=== PATIENT | female | born 1955 | race Caucasian/White ===

== ENCOUNTER 2016-11-24 10:08 | Emergency (ER) | payer BC ==
[2016-11-24 10:28] VITALS: RESP 16
--- NOTE | 2016-11-24 10:30 | EDPHY ---
H & P Time Seen by Provider: 11/24/16 10:29 HPI/ROS: Chief complaint. Rapid heart rate, dizzy HPI. 60-year-old female with history of atrial fibrillation arrived from [place] yesterday. Last night she had some dizzy spells and today she had fast heart rate and felt like she could pass out. Some chest tightness and slight shortness of breath specially with exertion. Symptoms are similar to previous atrial fibrillation. She takes Pradaxa. She has in the past taken diltiazem. She has had 3 ablations last June. She has been in normal sinus rhythm since then. ROS Constitutional. no fever/chills, no weakness Eyes. no problems with vision ENT. no sore throat, no nasal drainage Cardiovascular. Chest tightness and rapid rate Respiratory. Slight shortness of breath Abdominal. no abdominal pain, no nausea/vomiting, no diarrhea . no problems urinating MS. no calf pain/swelling, no neck/back pain, no joint pain Skin. no rash Lymph. no swollen glands Neuro. Near syncope Past Medical/Surgical History: Atrial fibrillation with the ablation is, hypertension Social History: Single nonsmoker no alcohol Smoking Status: Never smoked Physical Exam: General Appearance: Alert pleasant well-developed female moderate distress vital show a heart rate of 157 Eyes: Pupils equal and round no pallor or injection. ENT, Mouth: Mucous membranes are moist. Respiratory: There are no retractions, lungs are clear to auscultation. Cardiovascular: Irregularly irregular rate and rhythm with tachycardia Gastrointestinal: Abdomen is soft and nontender, no masses, bowel sounds normal. Neurological: Awake and alert, sensory and motor exams grossly normal. Skin: Warm and dry, no rashes. Musculoskeletal: Neck is supple nontender. Extremities symmetrical, full range of motion. Psychiatric: Patient is oriented X 3, there is no agitation. Constitutional: Initial Vital Signs Temperature (C) 36.6 C 11/24/16 10:26 Heart Rate 157 H 11/24/16 10:26 Respiratory Rate 16 11/24/16 10:26 Blood Pressure 147/91 H 11/24/16 10:26 O2 Sat (%) 94 11/24/16 10:26 O2 Delivery Mode Room Air Allergies/Adverse Reactions: No Known Allergies Allergy (Unverified 11/24/16 10:25) Home Medications: Medication Instructions Recorded DILTIAZEM HCL 30 mg PO TID #14 11/24/16 Medical Decision Making - Diagnostics EKG Interpretation: EKG interpreted by me shows atrial fib flutter. Left axis deviation. No significant ST elevation or depression. Ventricular response 159 Repeat EKG shows normal sinus rhythm with first-degree AV block left axis deviation no significant ST elevation or depression. Rate is 69 Imaging: Chest x-ray interpreted by me is nonacute Procedures: IV normal saline, monitor. Diltiazem 20 mg bolus intravenously followed by drip ED Course/Re-evaluation: Re-evaluation at 11:30 a.m. a.m.. Patient is in normal sinus rhythm with heart rate of 67 09/1940 patient continues to be in sinus rhythm and repeat EKG shows sinus rhythm. Currently her rate is 63 I consulted and discussed the case with Cardiology who recommends diltiazem 30 mg three times daily . I discussed findings and treatment plan with the patient. We discussed criteria for return and importance of follow-up and further evaluation. She expresses understanding and agreement Differential Diagnosis: Acute coronary syndrome, atrial fibrillation and other dysrhythmias. - Data Points Laboratory Results: Laboratory Results 11/24/16 11:52 11/24/16 11:52 11/24/16 11/24/16 11:52 11:52 WBC 8.60 10^3/uL 10^3/uL (3.80-9.50) RBC 4.66 10^6/uL 10^6/uL (4.18-5.33) Hgb 15.5 g/dL g/dL (12.6-16.3) Hct 45.2 % % (38.0-47.0) MCV 97.0 fL fL (81.5-99.8) MCH 33.3 pg pg (27.9-34.1) MCHC 34.3 g/dL g/dL (32.4-36.7) RDW 12.5 % % (11.5-15.2) Plt Count 252 10^3/uL 10^3/uL (150-400) MPV 9.5 fL fL (8.7-11.7) Neut % (Auto) 72.9 % % (39.3-74.2) Lymph % (Auto) 14.9 % L % (15.0-45.0) [place] % (Auto) 8.5 % % (4.5-13.0) Eos % (Auto) 2.7 % % (0.6-7.6) Baso % (Auto) 0.7 % % (0.3-1.7) Nucleat RBC Rel Count 0.0 % % (0.0-0.2) Absolute Neuts (auto) 6.27 10^3/uL 10^3/uL (1.70-6.50) Absolute Lymphs (auto) 1.28 10^3/uL 10^3/uL (1.00-3.00) Absolute Monos (auto) 0.73 10^3/uL 10^3/uL (0.30-0.80) Absolute Eos (auto) 0.23 10^3/uL 10^3/uL (0.03-0.40) Absolute Basos (auto) 0.06 10^3/uL 10^3/uL (0.02-0.10) Absolute Nucleated RBC 0.00 10^3/uL 10^3/uL (0-0.01) Immature Gran % 0.3 % % (0.0-1.1) Immature Gran # 0.03 10^3/uL 10^3/uL (0.00-0.10) Sodium 143 mEq/L mEq/L (134-144) Potassium 3.7 mEq/L mEq/L (3.5-5.2) Chloride 103 mEq/L mEq/L (97-110) Carbon Dioxide 26 mEq/l mEq/l (22-31) Anion Gap 14 mEq/L mEq/L (8-16) BUN 16 mg/dL mg/dL (7-23) Creatinine 0.7 mg/dL mg/dL (0.6-1.0) Estimated GFR > 60 Glucose 121 mg/dL H mg/dL (70-100) Calcium 9.0 mg/dL mg/dL (8.5-10.4) Troponin I 0.015 ng/mL ng/mL (0-0.034) Medications Given: Discontinued Medications Diltiazem HCl (Cardizem 25 Mg/5 Ml Vial) 20 mg IVP EDNOW ONE Stop: 11/24/16 10:39 Last Admin: 11/24/16 11:00 Dose: 20 mg Diltiazem HCl 125 mg/ Dextrose 125 mls @ 0 mls/hr IV EDNOW ONE; As Directed PRN Reason: Protocol Stop: 11/24/16 10:39 Last Admin: 11/24/16 11:10 Dose: 125 mls Sodium Chloride (Ns) 1,000 mls @ 0 mls/hr IV ONCE ONE PRN Reason: Wide Open Stop: 11/24/16 10:39 Last Admin: 11/24/16 11:07 Dose: 1,000 mls Departure - Departure Disposition: Home, Routine, Self-Care Clinical Impression: Atrial fibrillation Qualifiers: Atrial fibrillation type: paroxysmal Qualified Code(s): I48.0 - Paroxysmal atrial fibrillation Condition: Good Instructions: Atrial Fibrillation (ED) Additional Instructions: Continue your Pradaxa. Diltiazem 3 times daily. Follow up with your supervisor cooler service on return home to [place]. Return while in a [place] for worsening symptoms. Prescriptions: DILTIAZEM HCL 30 mg PO TID #14
--- NOTE | 2016-11-24 10:32 | CPEKG ---
Heart Rate: 159 RR Interval: 377 QRSD Interval: 80 QT Interval: 312 QTC Interval: 508 P [place]: 0 QRS [place]: -14 T Wave [place]: 122 EKG Severity - ABNORMAL ECG - EKG Impression: atrial fibrillation EKG Impression: PROBABLE LVH WITH SECONDARY REPOL ABNRM Electronically Signed By: Mukesh Menchaca 24-Nov-2016 13:45:13
[2016-11-24] MEDS ORDERED: NS 1,000 ML IV ONE (10:38)
[2016-11-24] MEDS ORDERED: DILTIAZEM 25 MG/5 ML VIAL IVP ONE (10:38)
[2016-11-24] MEDS ORDERED: DILTIAZEM 125 MG in D5W 125 ML IV ONE (10:38)
[2016-11-24 11:10] VITALS: TEMP 98.4
[2016-11-24 12:03] LABS: % IMMATURE GRANULYOCYTES 0.3 % (0.0-1.1); ABSOLUTE IMMATURE GRANULOCYTES 0.03 10^3/uL (0.00-0.10); ADD DIFF? NO; ADD MORPH? NO; ADD SCAN? NO; ATYPICAL LYMPHOCYTE FLAG 10 (0-99); FRAGMENT RBC FLAG 10 (0-99); HEMATOCRIT 45.2 % (38.0-47.0); HEMOGLOBIN 15.5 g/dL (12.6-16.3); LEFT SHIFT FLG 0 (0-99); LIPEMIA HEMOLYSIS FLAG 90 (0-99); MEAN CELL HEMOGLOBIN 33.3 pg (27.9-34.1); MEAN CELL HEMOGLOBIN CONCENTR. 34.3 g/dL (32.4-36.7); MEAN PLATELET VOLUME 9.5 fL (8.7-11.7); PLATELET CLUMPS FLAG 0 (0-99); PLATELET COUNT 252 10^3/uL (150-400); RED BLOOD CELL COUNT 4.66 10^6/uL (4.18-5.33); RED CELL DISTRIBUTION WIDTH 12.5 % (11.5-15.2)
[2016-11-24 12:22] LABS: ANION GAP 14 mEq/L (8-16); CARBON DIOXIDE 26 mEq/l (22-31); CHLORIDE 103 mEq/L (97-110); CREATININE 0.7 mg/dL (0.6-1.0); GLOMERULAR FILTRATION RATE > 60; GLUCOSE 121 mg/dL (70-100); POTASSIUM 3.7 mEq/L (3.5-5.2); SODIUM 143 mEq/L (134-144)
[2016-11-24 12:34] LABS: TROPONIN I 0.015 ng/mL (0-0.034)
[2016-11-24 13:04] VITALS: BP 128/79; PULSE 68; O2SAT 94
== END 2016-11-24 13:00 | disposition home or self-care (01) ==
DX: I48.0 Paroxysmal atrial fibrillation (principal); I10 Essential (primary) hypertension
CPT/HCPCS: 96365; 96366

== ENCOUNTER 2016-11-26 07:26 | Observation (INO) | payer BC ==
--- NOTE | 2016-11-26 07:38 | EDPHY ---
H & P Time Seen by Provider: 11/26/16 07:36 HPI/ROS: Chief complaint. Chest pain HPI. I was having difficulty completing this chart. I canceled this 1 and completed a different chart on this patient. ROS Constitutional. [no fever/chills, no weakness] Eyes. [no problems with vision] ENT. [no sore throat, no nasal drainage] Cardiovascular. [no chest pain] Respiratory. [no shortness of breath, no cough] Abdominal. [no abdominal pain, no nausea/vomiting, no diarrhea] . [no problems urinating] MS. [no calf pain/swelling, no neck/back pain, no joint pain] Skin. [no rash] Lymph. [no swollen glands] Neuro. [no headache, no dizziness, no difficulty walking or with speech] Past Medical/Surgical History: Atrial fibrillation with ablation. Hypertension Social History: Single, nonsmoker, no alcohol. Visiting from [place] Smoking Status: Never smoked Constitutional: Initial Vital Signs Temperature (C) 36.7 C 11/26/16 07:36 Heart Rate 162 H 11/26/16 07:36 Respiratory Rate 24 H 11/26/16 07:36 Blood Pressure 107/78 11/26/16 07:36 O2 Sat (%) 97 11/26/16 07:36 O2 Delivery Mode Room Air O2 (L/minute) 2 Allergies/Adverse Reactions: No Known Allergies Allergy (Unverified 11/24/16 10:25) Home Medications: Medication Instructions Recorded Cholecalciferol Vit D3 [Vitamin D3 2,000 units PO DAILY 11/26/16 2000 units tab (OTC)] Dabigatran Etexilate Mesyl 150 mg PO BID 11/26/16 [Pradaxa 150 MG (*)] Diltiazem HCl 30 mg PO TID 11/26/16 Ferrous Sulfate [Ferrous Sulf 325 325 mg PO DAILY 11/26/16 MG (*)] Fish Oil/Dha/Epa [Fish Oil 1,200 1 each PO DAILY 11/26/16 mg Fish Oil] Furosemide [Lasix 20 MG (*)] 20 mg PO Q2D 11/26/16 Nebivolol HCl [Bystolic] 10 mg PO DAILY 11/26/16 SIMVASTATIN 10 mg PO HS 11/26/16 Terbinafine HCl [LamISIL 250 MG 250 mg PO DAILY 11/26/16 (*)] metFORMIN HCL [Glucophage 500 mg 500 mg PO DAILY 11/26/16 (*)] Medical Decision Making - Diagnostics EKG Interpretation: EKG interpreted by me shows normal sinus rhythm with first-degree AV block. Left axis deviation. QRS is normal. Lateral T-wave inversion - Data Points Laboratory Results: Laboratory Results 11/26/16 07:50 11/26/16 07:50 11/26/16 11/26/16 11/26/16 08:50 07:50 07:50 WBC RBC Hgb Hct MCV MCH MCHC RDW Plt Count MPV Neut % (Auto) Lymph % (Auto) [place] % (Auto) Eos % (Auto) Baso % (Auto) Nucleat RBC Rel Count Absolute Neuts (auto) Absolute Lymphs (auto) Absolute Monos (auto) Absolute Eos (auto) Absolute Basos (auto) Absolute Nucleated RBC Immature Gran % Immature Gran # PT 16.0 SEC H SEC (12.0-15.0) INR 1.28 H (0.83-1.16) APTT 27.4 SEC SEC (23.0-38.0) D-Dimer 0.57 ug/mLFEU H ug/mLFEU (0.00-0.50) Sodium 144 mEq/L mEq/L (134-144) Potassium 3.7 mEq/L mEq/L (3.5-5.2) Chloride 107 mEq/L mEq/L (97-110) Carbon Dioxide 25 mEq/l mEq/l (22-31) Anion Gap 12 mEq/L mEq/L (8-16) BUN 11 mg/dL mg/dL (7-23) Creatinine 0.6 mg/dL mg/dL (0.6-1.0) Estimated GFR > 60 Glucose 152 mg/dL H mg/dL (70-100) Calcium 9.0 mg/dL mg/dL (8.5-10.4) Magnesium 2.1 mg/dL mg/dL (1.6-2.3) Troponin I 0.018 ng/mL ng/mL (0-0.034) NT-Pro-B Natriuret Pep 1650 pg/mL H pg/mL (0-125) 11/26/16 07:50 WBC 9.14 10^3/uL 10^3/uL (3.80-9.50) RBC 4.45 10^6/uL 10^6/uL (4.18-5.33) Hgb 14.5 g/dL g/dL (12.6-16.3) Hct 43.0 % % (38.0-47.0) MCV 96.6 fL fL (81.5-99.8) MCH 32.6 pg pg (27.9-34.1) MCHC 33.7 g/dL g/dL (32.4-36.7) RDW 12.5 % % (11.5-15.2) Plt Count 198 10^3/uL D 10^3/uL (150-400) MPV 9.6 fL fL (8.7-11.7) Neut % (Auto) 66.9 % % (39.3-74.2) Lymph % (Auto) 20.5 % % (15.0-45.0) [place] % (Auto) 7.0 % % (4.5-13.0) Eos % (Auto) 4.3 % % (0.6-7.6) Baso % (Auto) 0.8 % % (0.3-1.7) Nucleat RBC Rel Count 0.0 % % (0.0-0.2) Absolute Neuts (auto) 6.12 10^3/uL 10^3/uL (1.70-6.50) Absolute Lymphs (auto) 1.87 10^3/uL 10^3/uL (1.00-3.00) Absolute Monos (auto) 0.64 10^3/uL 10^3/uL (0.30-0.80) Absolute Eos (auto) 0.39 10^3/uL 10^3/uL (0.03-0.40) Absolute Basos (auto) 0.07 10^3/uL 10^3/uL (0.02-0.10) Absolute Nucleated RBC 0.00 10^3/uL 10^3/uL (0-0.01) Immature Gran % 0.5 % % (0.0-1.1) Immature Gran # 0.05 10^3/uL 10^3/uL (0.00-0.10) PT INR APTT D-Dimer Sodium Potassium Chloride Carbon Dioxide Anion Gap BUN Creatinine Estimated GFR Glucose Calcium Magnesium Troponin I NT-Pro-B Natriuret Pep Medications Given: Discontinued Medications Aspirin (Aspirin) 324 mg PO EDNOW ONE Stop: 11/26/16 08:00 Last Admin: 11/26/16 08:10 Dose: 324 mg Furosemide (Lasix Injection) 20 mg IVP ONCE ONE Stop: 11/26/16 11:44 Last Admin: 11/26/16 13:16 Dose: 20 mg Sodium Chloride (Ns) 1,000 mls @ 0 mls/hr IV ONCE ONE PRN Reason: Wide Open Stop: 11/26/16 07:41 Last Admin: 11/26/16 07:55 Dose: 1,000 mls Lorazepam (Ativan) 1 mg PO EDNOW ONE Stop: 11/26/16 08:00 Last Admin: 11/26/16 08:10 Dose: 1 mg Departure - Departure Disposition: [facility] Acute Clinical Impression: Chest pain, Congestive heart failure Condition: Fair
[2016-11-26] MEDS ORDERED: NS 1,000 ML IV ONE (07:40)
--- NOTE | 2016-11-26 07:42 | CPEKG ---
Heart Rate: 76 RR Interval: 789 P-R Interval: 232 QRSD Interval: 84 QT Interval: 408 QTC Interval: 459 P [place]: 57 QRS [place]: -3 T Wave [place]: 112 EKG Severity - ABNORMAL ECG - EKG Impression: SINUS RHYTHM EKG Impression: FIRST DEGREE AV BLOCK EKG Impression: ABNORMAL T, CONSIDER ISCHEMIA, LATERAL LEADS Electronically Signed By: Mukesh Menchaca 26-Nov-2016 07:58:12
[2016-11-26] MEDS ORDERED: ASPIRIN 81 MG CHEWABLE TAB PO ONE (07:59)
[2016-11-26] MEDS ORDERED: LORazepam 1 MG TAB PO ONE (07:59)
[2016-11-26 08:10] LABS: % IMMATURE GRANULYOCYTES 0.5 % (0.0-1.1); ABSOLUTE IMMATURE GRANULOCYTES 0.05 10^3/uL (0.00-0.10); ADD DIFF? NO; ADD MORPH? NO; ADD SCAN? NO; ATYPICAL LYMPHOCYTE FLAG 0 (0-99); FRAGMENT RBC FLAG 0 (0-99); HEMOGLOBIN 14.5 g/dL (12.6-16.3); LEFT SHIFT FLG 0 (0-99); LIPEMIA HEMOLYSIS FLAG 80 (0-99); MEAN CELL HEMOGLOBIN 32.6 pg (27.9-34.1); MEAN CELL HEMOGLOBIN CONCENTR. 33.7 g/dL (32.4-36.7); MEAN CELL VOLUME 96.6 fL (81.5-99.8); MEAN PLATELET VOLUME 9.6 fL (8.7-11.7); PLATELET CLUMPS FLAG 10 (0-99); PLATELET COUNT 198 10^3/uL (150-400); RED BLOOD CELL COUNT 4.45 10^6/uL (4.18-5.33); RED CELL DISTRIBUTION WIDTH 12.5 % (11.5-15.2)
[2016-11-26 08:11] LABS: ANION GAP 12 mEq/L (8-16); CARBON DIOXIDE 25 mEq/l (22-31); CHLORIDE 107 mEq/L (97-110); CREATININE 0.6 mg/dL (0.6-1.0); GLOMERULAR FILTRATION RATE > 60; GLUCOSE 152 mg/dL (70-100); POTASSIUM 3.7 mEq/L (3.5-5.2); SODIUM 144 mEq/L (134-144)
[2016-11-26 08:14] LABS: INR 1.28 (0.83-1.16)
[2016-11-26 08:15] LABS: APTT 27.4 SEC (23.0-38.0)
[2016-11-26 08:23] LABS: TROPONIN I 0.018 ng/mL (0-0.034)
--- NOTE | 2016-11-26 08:34 | EDPHY ---
H & P Time Seen by Provider: 11/26/16 07:36 HPI/ROS: Chief complaint. CHIEF COMPLAINT: Chest pain. HPI. Patient is a 60-year-old female here with chest discomfort and sense of fast heartbeat that began about 4 o'clock this morning. She was seen in our emergency department 2 days ago for atrial fibrillation and was treated with diltiazem intravenously and converted. I saw the patient and consulted with Cardiology and the patient was discharged on oral diltiazem. Yesterday she felt well. Today she has chest pressure without radiation. She had shortness of breath and diaphoresis. Symptoms were worse with exertion. No unusual leg pain or swelling. She is visiting from [place] for a wedding. She had an ablation in June for her atrial fibrillation and had not had atrial fibrillation until she came to [place] a few days ago. Not ill and no fever. This morning she felt that her heart was beating fast around 150. She did take a diltiazem ROS Constitutional. Weakness Eyes. no problems with vision ENT. no sore throat, no nasal drainage Cardiovascular. Chest pressure Respiratory. Shortness of breath Abdominal. no abdominal pain, no nausea/vomiting, no diarrhea . no problems urinating MS. no calf pain/swelling, no neck/back pain, no joint pain Skin. Diaphoresis Lymph. no swollen glands Neuro. no headache, no dizziness, no difficulty walking or with speech Past Medical/Surgical History: Past medical history is significant for hypertension and atrial fibrillation Social History: Single, nonsmoker, no alcohol. Visiting from [place] Smoking Status: Never smoked Physical Exam: General Appearance: Alert pleasant well-developed female moderate distress vital signs are stable Eyes: Pupils equal and round no pallor or injection. ENT, Mouth: Mucous membranes are moist. Respiratory: There are no retractions, lungs are clear to auscultation. Cardiovascular: Regular rate and rhythm. Gastrointestinal: Abdomen is soft and nontender, no masses, bowel sounds normal. Neurological: Awake and alert, sensory and motor exams grossly normal. Skin: Warm and dry, no rashes. Musculoskeletal: Neck is supple nontender. Extremities symmetrical, full range of motion. Psychiatric: Patient is oriented X 3, there is no agitation. Constitutional: Initial Vital Signs Temperature (C) 36.7 C 11/26/16 07:36 Heart Rate 162 H 11/26/16 07:36 Respiratory Rate 24 H 11/26/16 07:36 Blood Pressure 107/78 11/26/16 07:36 O2 Sat (%) 97 11/26/16 07:36 O2 Delivery Mode Room Air O2 (L/minute) 2 Allergies/Adverse Reactions: No Known Allergies Allergy (Unverified 11/24/16 10:25) Home Medications: Medication Instructions Recorded DILTIAZEM HCL 30 mg PO TID #14 11/24/16 Diltiazem [Cardizem 60 MG (*)] 30 mg PO TID #14 tab 11/24/16 Medical Decision Making - Diagnostics EKG Interpretation: EKG interpreted by me shows normal sinus rhythm with first-degree AV block. QRS is normal there is no significant ST elevation. There is T-wave inversion in leads 1 and aVL. The rate is 76. The changes in the lateral leads were present on EKG 2 days ago Imaging: One-view chest x-ray interpreted by me shows no evidence for pneumonia. It is consistent with mild CHF CT angiogram patient's chest shows bilateral pleural effusions, CHF, incidental thyroid nodule. Procedures: IV normal saline, monitor. Patient is given aspirin and Ativan as she is quite anxious. ED Course/Re-evaluation: Re-evaluation at 8:30 a.m. patient is feeling better after the Ativan. Her discomfort is less. She remains in sinus rhythm The patient's D-dimer is elevated. She and I discussed further evaluation with chest CT. She consents, understands, and is in agreement Re-evaluation at 9:25 a.m.. Patient is feeling better. She and I discussed EKG , imaging study results, treatment plan including recommendation for admission. She expresses understanding and agreement I consulted and discussed the case with Dr. Wu, hospitalist, who agrees to the admission Differential Diagnosis: I considered acute coronary syndrome, arrhythmia including atrial fibrillation, pulmonary embolus, congestive heart failure, COPD. Patient has evidence for CHF. I suspect that there is cardiac ischemia as well. She was seen 2 days ago for atrial fibrillation but today is in normal sinus rhythm. She does have lateral ischemic type changes on her EKG - Data Points Laboratory Results: Laboratory Results 11/26/16 07:50 11/26/16 07:50 11/26/16 11/26/16 11/26/16 07:50 07:50 07:50 WBC 9.14 10^3/uL 10^3/uL (3.80-9.50) RBC 4.45 10^6/uL 10^6/uL (4.18-5.33) Hgb 14.5 g/dL g/dL (12.6-16.3) Hct 43.0 % % (38.0-47.0) MCV 96.6 fL fL (81.5-99.8) MCH 32.6 pg pg (27.9-34.1) MCHC 33.7 g/dL g/dL (32.4-36.7) RDW 12.5 % % (11.5-15.2) Plt Count 198 10^3/uL D 10^3/uL (150-400) MPV 9.6 fL fL (8.7-11.7) Neut % (Auto) 66.9 % % (39.3-74.2) Lymph % (Auto) 20.5 % % (15.0-45.0) [place] % (Auto) 7.0 % % (4.5-13.0) Eos % (Auto) 4.3 % % (0.6-7.6) Baso % (Auto) 0.8 % % (0.3-1.7) Nucleat RBC Rel Count 0.0 % % (0.0-0.2) Absolute Neuts (auto) 6.12 10^3/uL 10^3/uL (1.70-6.50) Absolute Lymphs (auto) 1.87 10^3/uL 10^3/uL (1.00-3.00) Absolute Monos (auto) 0.64 10^3/uL 10^3/uL (0.30-0.80) Absolute Eos (auto) 0.39 10^3/uL 10^3/uL (0.03-0.40) Absolute Basos (auto) 0.07 10^3/uL 10^3/uL (0.02-0.10) Absolute Nucleated RBC 0.00 10^3/uL 10^3/uL (0-0.01) Immature Gran % 0.5 % % (0.0-1.1) Immature Gran # 0.05 10^3/uL 10^3/uL (0.00-0.10) PT 16.0 SEC H SEC (12.0-15.0) INR 1.28 H (0.83-1.16) APTT 27.4 SEC SEC (23.0-38.0) D-Dimer 0.57 ug/mLFEU H ug/mLFEU (0.00-0.50) Sodium 144 mEq/L mEq/L (134-144) Potassium 3.7 mEq/L mEq/L (3.5-5.2) Chloride 107 mEq/L mEq/L (97-110) Carbon Dioxide 25 mEq/l mEq/l (22-31) Anion Gap 12 mEq/L mEq/L (8-16) BUN 11 mg/dL mg/dL (7-23) Creatinine 0.6 mg/dL mg/dL (0.6-1.0) Estimated GFR > 60 Glucose 152 mg/dL H mg/dL (70-100) Calcium 9.0 mg/dL mg/dL (8.5-10.4) Troponin I 0.018 ng/mL ng/mL (0-0.034) NT-Pro-B Natriuret Pep 1650 pg/mL H pg/mL (0-125) Medications Given: Discontinued Medications Aspirin (Aspirin) 324 mg PO EDNOW ONE Stop: 11/26/16 08:00 Last Admin: 11/26/16 08:10 Dose: 324 mg Sodium Chloride (Ns) 1,000 mls @ 0 mls/hr IV ONCE ONE PRN Reason: Wide Open Stop: 11/26/16 07:41 Last Admin: 11/26/16 07:55 Dose: 1,000 mls Lorazepam (Ativan) 1 mg PO EDNOW ONE Stop: 11/26/16 08:00 Last Admin: 11/26/16 08:10 Dose: 1 mg Departure - Departure Disposition: [facility]patient Acute Clinical Impression: Chest pain Qualifiers: Chest pain type: unspecified Qualified Code(s): R07.9 - Chest pain, unspecified Congestive heart failure Qualifiers: Congestive heart failure type: systolic Congestive heart failure chronicity: unspecified congestive heart failure chronicity Qualified Code(s): I50.20 - Unspecified systolic (congestive) heart failure Condition: Fair Referrals: Unknown,Unknown [Unknown] - As per Instructions
[2016-11-26] MEDS ORDERED: IOPAMIDOL (ISOVUE 370) 100 ML BTL IV ONE (08:43)
[2016-11-26] MEDS ORDERED: ONDANSETRON 4 MG/2 ML VIAL IVP PRN (11:41)
[2016-11-26] MEDS ORDERED: TEMAZEPAM 15 MG CAP PO PRN (11:41)
[2016-11-26] MEDS ORDERED: ACETAMINOPHEN 325 MG TAB PO PRN (11:41)
[2016-11-26] MEDS ORDERED: ONDANSETRON DISINTEGRATING 4 MG TAB PO PRN (11:41)
[2016-11-26] MEDS ORDERED: FUROSEMIDE 20 MG/2 ML VIAL IVP ONE (11:43)
[2016-11-26] MEDS ORDERED: NON-FORMULARY NEW DRUG (Nebivolol Hcl [Bystolic] 10 MG) PO SCH (11:45)
[2016-11-26] MEDS ORDERED: DILTIAZEM 30 MG TAB PO SCH (12:00)
--- NOTE | 2016-11-26 12:17 | PDGENHP ---
History and Physical - Chief Complaint chest pain, heart palpitations - History of Present Illness 60 yo female with h/o A fib, s/p ablation in 06/2016 presents to ED with chest pain, SOB and heart palpitations. She is visiting from [place], [place] for a wedding. Upon arrival on , she had a brief, 15 second episode of lightheadedness. The following day, she again had palpitations and chest discomfort and came to the ED where she was found to be in rapid A fib. She received a dose of Diltiazem and spontaneously converted to NSR. She was discharged on oral diltiazem 30 mg TID. She took a dose at 6 pm last night and this morning, ~12 hr later, she developed palpitations, dizziness, CP and SOB. She took her 30 mg oral Diltiazem and returned to the ED where her initial HR was 162. By the time an EKG was performed, she was back in NSR and her symptoms were improved. She does endorse orthopnea, but denies LE edema or PND. Given her recurrent symptoms, she is admitted to the hospital for further evaluation. History Information - Allergies/Home Medication List Allergies/Adverse Reactions: No Known Allergies Allergy (Unverified 11/24/16 10:25) Home Medications: Cholecalciferol Vit D3 [Vitamin D3 2000 units tab (OTC)] 2,000 units PO DAILY [Last Taken 11/25/16 08:00] Dabigatran Etexilate Mesyl [Pradaxa 150 MG (*)] 150 mg PO BID 11/26/16 [Last Taken 11/25/16 22:00] Diltiazem HCl 30 mg PO TID 11/26/16 [Last Taken 11/26/16 07:00] Ferrous Sulfate [Ferrous Sulf 325 MG (*)] 325 mg PO DAILY 11/26/16 [Last Taken 11/25/16 08:00] Fish Oil/Dha/Epa [Fish Oil 1,200 mg Fish Oil] 1 each PO DAILY 11/26/16 [Last Taken 11/25/16 08:00] Furosemide [Lasix 20 MG (*)] 20 mg PO Q2D 11/26/16 [Last Taken 11/22/16] Nebivolol HCl [Bystolic] 10 mg PO DAILY 11/26/16 [Last Taken 11/25/16 08:00] SIMVASTATIN 10 mg PO HS 11/26/16 [Last Taken 11/25/16 22:00] Terbinafine HCl [LamISIL 250 MG (*)] 250 mg PO DAILY 11/26/16 [Last Taken ] metFORMIN HCL [Glucophage 500 mg (*)] 500 mg PO DAILY 11/26/16 [Last Taken 11/25 08:00] I have personally reviewed and updated: family history, medical history, social history, surgical history - Past Medical History atrial fibrillation, hypertension, hyperlipidemia Additional medical history: pre-diabetes - Surgical History Additional surgical history: oopherectomy, AV edith ablation - Family History Additional family history: mom of heart problems, dad is alive and healthy - Social History Smoking Status: Never smoked Alcohol Use: Other (1-2 glasses of wine per day) Drug Use: None Review of Systems ROS: 10pt was reviewed & negative except for what was stated in HPI & below Physical Exam Temp Pulse Resp BP Pulse Ox 36.5 C 112 H 11 L 129/104 H 93 11/26/16 11:01 11/26/16 11:01 11/26/16 11:01 11/26/16 11:01 11/26/16 11:01 Constitutional: no apparent distress Eyes: PERRL Ears, Nose, Mouth, Throat: moist mucous membranes Cardiovascular: irregularly irregular Respiratory: no respiratory distress, clear to auscultation Gastrointestinal: normoactive bowel sounds, soft, non-tender abdomen Skin: warm Musculoskeletal: full muscle strength Neurologic: AAOx3 Psychiatric: interacting appropriately Lab Data & Imaging Review 11/26/16 07:50 11/26/16 07:50 WBC 9.14 10^3/uL (3.80-9.50) 11/26/16 07:50 RBC 4.45 10^6/uL (4.18-5.33) 11/26/16 07:50 Hgb 14.5 g/dL (12.6-16.3) 11/26/16 07:50 Hct 43.0 % (38.0-47.0) 11/26/16 07:50 MCV 96.6 fL (81.5-99.8) 11/26/16 07:50 MCH 32.6 pg (27.9-34.1) 11/26/16 07:50 MCHC 33.7 g/dL (32.4-36.7) 11/26/16 07:50 RDW 12.5 % (11.5-15.2) 11/26/16 07:50 Plt Count 198 10^3/uL (150-400) D 11/26/16 07:50 MPV 9.6 fL (8.7-11.7) 11/26/16 07:50 Neut % (Auto) 66.9 % (39.3-74.2) 11/26/16 07:50 Lymph % (Auto) 20.5 % (15.0-45.0) 11/26/16 07:50 Marin % (Auto) 7.0 % (4.5-13.0) 11/26/16 07:50 Eos % (Auto) 4.3 % (0.6-7.6) 11/26/16 07:50 Baso % (Auto) 0.8 % (0.3-1.7) 11/26/16 07:50 Nucleat RBC Rel Count 0.0 % (0.0-0.2) 11/26/16 07:50 Absolute Neuts (auto) 6.12 10^3/uL (1.70-6.50) 11/26/16 07:50 Absolute Lymphs (auto) 1.87 10^3/uL (1.00-3.00) 11/26/16 07:50 Absolute Monos (auto) 0.64 10^3/uL (0.30-0.80) 11/26/16 07:50 Absolute Eos (auto) 0.39 10^3/uL (0.03-0.40) 11/26/16 07:50 Absolute Basos (auto) 0.07 10^3/uL (0.02-0.10) 11/26/16 07:50 Absolute Nucleated RBC 0.00 10^3/uL (0-0.01) 11/26/16 07:50 Immature Gran % 0.5 % (0.0-1.1) 11/26/16 07:50 Immature Gran # 0.05 10^3/uL (0.00-0.10) 11/26/16 07:50 PT 16.0 SEC (12.0-15.0) H 11/26/16 07:50 INR 1.28 (0.83-1.16) H 11/26/16 07:50 APTT 27.4 SEC (23.0-38.0) 11/26/16 07:50 D-Dimer 0.57 ug/mLFEU (0.00-0.50) H 11/26/16 07:50 Sodium 144 mEq/L (134-144) 11/26/16 07:50 Potassium 3.7 mEq/L (3.5-5.2) 11/26/16 07:50 Chloride 107 mEq/L (97-110) 11/26/16 07:50 Carbon Dioxide 25 mEq/l (22-31) 11/26/16 07:50 Anion Gap 12 mEq/L (8-16) 11/26/16 07:50 BUN 11 mg/dL (7-23) 11/26/16 07:50 Creatinine 0.6 mg/dL (0.6-1.0) 11/26/16 07:50 Estimated GFR > 60 11/26/16 07:50 Glucose 152 mg/dL (70-100) H 11/26/16 07:50 Calcium 9.0 mg/dL (8.5-10.4) 11/26/16 07:50 Troponin I 0.018 ng/mL (0-0.034) 11/26/16 07:50 NT-Pro-B Natriuret Pep 1650 pg/mL (0-125) H 11/26/16 07:50 Assessment & Plan Assessment: A fib with RVR - She spontaneously converted in the ED 2 days ago after one dose of Diltiazem and again converted this am after taking her oral dose. She was a bit under-dosed on short acting Diltiazem and will likely respond well to 24 hr dilt dosing. Will give Dilt CD 120 mg daily. Chads-vasc at least 2, cont Pradaxa for stroke prevention. Acute heart failure - may be related to rapid A fib. She is not hypoxemic and is hemodynamically stable. Will give a dose of IV Lasix now and resume oral Lasix tomorrow. Check echo to evaluate LV function. Pre-diabetes - will continue metformin Hypertension - adequately controlled. Continue Bystolic and Dilt as above. Full code Dispo - obs. May be a candidate for dc in am if rate controlled.
[2016-11-26] MEDS: DABIGATRAN ETEXILATE MESYL 150 MG CAP PO SCH ×2 (13:17→22:30)
[2016-11-26] MEDS: NEBIVOLOL HCL 5 MG TAB PO SCH (13:17)
[2016-11-26] MEDS: DILTIAZEM CD 120 MG CAP PO SCH (13:17)
--- NOTE | 2016-11-26 15:01 | ECHO ---
[id number] + + [address] : : [place] [address] : : [phone] + + Adult Echocardiographic Report + + :Name: Donn HUFF Date: 11/26/2016 01:23 PM : : Hospital Admission Number: [id number] : :: 1955 Gender: Female Height: 68 in : :Age: 60 yrs Race: WH Weight: 215 lb : :Reason For Study: Eval LV Fx : : BSA: 2.1 meters2: :History: New onset A-Fib : + + MMode/2D Measurements \T\ Calculations IVSd: 1.2 cm LVIDd: 3.3 cm FS: 41.6 % Ao root diam: 2.5 cm LVPWd: 1.2 cm LVIDs: 1.9 cm EDV(Teich): 44.1 ml ACS: 1.7 cm ESV(Teich): 11.6 ml EF(Teich): 73.8 % Normal Measurement Values: + + :LVIDd (3.5-5.7cm) IVSd (0.6-1.1cm) LVPWd (0.6-1.1cm) Aortic Root (2.0-3.7cm)Left Atrium (1.5-4.0cm): :LV Vol(d) (76-115ml) LV Vol(s) (29-48ml) Ejec Fraction (50-65%)PV Michel (0.6- 1.2m/s) TV Michel (0.4-1.0m/s) : :MV E Michel (0.8-1.0m/s)MV A Michel (0.3-1.0m/s)LVOT Michel (0.7-1.2m/s) Asc Ao Michel ( 0.9-1.8m/s) : + + Doppler Measurements \T\ Calculations MV E max michel: Ao V2 max: LV V1 max: PA V2 max: 128.2 cm/sec 168.3 cm/sec 181.8 cm/sec 119.4 cm/sec Ao max PG: LV V1 max PG: PA max P.3 mmHg 13.2 mmHg 5.7 mmHg Left Ventricle The left ventricle is normal in size. There is mild to moderate concentric left ventricular hypertrophy. An intracavitary gradient is suspected. The left ventricle is hyperdynamic. Ejection Fraction = 74%. The left ventricular wall motion is normal. Right Ventricle The right ventricle is normal in size and function. Atria The left atrial size is normal. Right atrial size is normal. Mitral Valve The mitral valve is normal in structure and function. There is no evidence of mitral valve prolapse. There is no mitral valve stenosis. There is no mitral regurgitation noted. Tricuspid Valve The tricuspid valve is normal in structure and function. No tricuspid regurgitation. Aortic Valve The aortic valve is normal in structure and function. There is no aortic stenosis. There is no aortic insufficiency. Pulmonic Valve The pulmonic valve is normal in structure and function. There is no pulmonic valvular regurgitation. Great Vessels The aortic root is normal size. Pericardium/Pleural There is no pericardial effusion. Conclusion A complete two-dimensional transthoracic echocardiogram was performed (2D, M-mode, Doppler and color flow Doppler). Technically limited study due to poor imaging related to body habitus. The rhythm is atrial fibrillation. The left ventricle is normal in size. There is mild to moderate concentric left ventricular hypertrophy. The left ventricle is hyperdynamic with cavity obliteration in systole. Ejection Fraction = 74%. An intracavitary gradient is suspected. The left ventricular wall motion is normal. Valvular structures are grossly normal in appearance and function. Image quality precludes a detailed assessment of valve morphology/function. There is no pericardial effusion. Final Reading Physician: Cori Briones signed on 11/26/2016 03:00 PM Ordering Physician: Amira Caballero Performed By: Deacon Tomlin, PATIENCECS
[2016-11-26] MEDS ORDERED: LORazepam 1 MG TAB PO PRN (17:59)
[2016-11-26] MEDS: PANTOPRAZOLE SODIUM 40 MG TAB PO SCH (18:15)
[2016-11-26] MEDS ORDERED: NON-FORMULARY NEW DRUG (Simvastatin [Simvastatin] 10 MG) PO SCH (21:00)
[2016-11-26] MEDS ORDERED: PRAVASTATIN SODIUM 20 MG TAB PO SCH (21:00)
[2016-11-27 05:15] LABS: ANION GAP 9 mEq/L (8-16); CARBON DIOXIDE 28 mEq/l (22-31); CHLORIDE 103 mEq/L (97-110); CREATININE 0.8 mg/dL (0.6-1.0); GLOMERULAR FILTRATION RATE > 60; GLUCOSE 111 mg/dL (70-100); POTASSIUM 4.4 mEq/L (3.5-5.2); SODIUM 140 mEq/L (134-144)
[2016-11-27] MEDS: NEBIVOLOL HCL 5 MG TAB PO SCH (08:07)
[2016-11-27] MEDS: DILTIAZEM CD 120 MG CAP PO SCH (08:09)
[2016-11-27] MEDS: DABIGATRAN ETEXILATE MESYL 150 MG CAP PO SCH (08:09)
[2016-11-27] MEDS: PANTOPRAZOLE SODIUM 40 MG TAB PO SCH (08:10)
[2016-11-27] MEDS ORDERED: FERROUS SULFATE 325 MG TAB PO SCH (09:00)
[2016-11-27] MEDS ORDERED: FUROSEMIDE 20 MG TAB PO SCH (09:00)
--- NOTE | 2016-11-27 09:35 | HOSPPROG ---
Hospitalist Progress Note Assessment/Plan: A fib / flutter with RVR - she is rate controlled now, but not tolerating flutter this am, SOB with palpitations and chest discomfort with activity. Trops neg x3. Also very anxious. She is s/p a fib ablation in 06/2016 and had 4 CV's prior to that. Will continue rate control with Dilt CD. She is anticoagulated on Pradaxa. Discussed case with Cards. Will make NPO for cardioversion this afternoon. Not a great candidate for anti-arrhythmic therapy due to lack of f/u capacity as she is from [place] and wishes to return to [place]. Reviewed echo, no WMA, nl EF, no valve disease, +e/o hypertensive heart disease with mild LVH and intracavitary gradient. Will also check tsh. Mild CHF - BNP elevated. Not hypoxic this am. Received IV Lasix yesterday and reports voiding more than what is charted. Will continue oral lasix for now. Hypertension - adequate control on Bystolic and Dilt, cont current regimen. DM / pre-diabetes - BG's 110-150. Continue Metformin. Check a1c. Anxiety - requiring prn ativan. Full code Dispo - change to inpt as she'll require cardioversion and ongoing management of a fib/flutter. Subjective: Pt is anxious, tearful. Complains of chest discomfort, palpitations and SOB with any activity. Tele shows flutter overnight. She ate breakfast this am. Objective: Vital Signs Temp Pulse Resp BP Pulse Ox 36.4 C 84 20 141/85 H 96 11/27/16 08:36 11/27/16 08:36 11/27/16 08:36 11/27/16 08:36 11/27/16 08:36 Laboratory Results 11/27/16 03:59 11/26/16 11/27/16 11/28/16 05:59 05:59 05:59 Intake Total 1600 Output Total 1800 Balance -200 PT 16.0 SEC (12.0-15.0) H 11/26/16 07:50 INR 1.28 (0.83-1.16) H 11/26/16 07:50 - Physical Exam Constitutional: no apparent distress Eyes: PERRL Ears, Nose, Mouth, Throat: moist mucous membranes Cardiovascular: no murmur, rub, or gallop, irregularly irregular Respiratory: no respiratory distress, clear to auscultation Gastrointestinal: normoactive bowel sounds, soft, non-tender abdomen Skin: warm Musculoskeletal: full muscle strength Neurologic: AAOx3 Psychiatric: interacting appropriately ICD10 Worksheet Patient Problems: Problems Problem Status Onset Chest pain Acute Congestive heart failure Acute
[2016-11-27] MEDS ORDERED: IBUPROFEN 600 MG TAB PO PRN (10:01)
[2016-11-27 11:18] VITALS: TEMP 97.8
--- NOTE | 2016-11-27 11:23 | CPEKG ---
Heart Rate: 75 RR Interval: 800 QRSD Interval: 116 QT Interval: 412 QTC Interval: 461 QRS Wallace: -2 T Wave Wallace: 52 EKG Severity - ABNORMAL ECG - EKG Impression: A-FLUTTER W/ PREDOM 4:1 AV BLOCK, A-RATE 306 EKG Impression: NONSPECIFIC INTRAVENTRICULAR CONDUCTION DELAY EKG Impression: PROBABLE LEFT VENTRICULAR HYPERTROPHY Electronically Signed By: Arvin Marie 27-Nov-2016 14:49:20
[2016-11-27 12:24] LABS: HEMOGLOBIN A1C 5.4 % (4.0-6.0)
[2016-11-27] MEDS ORDERED: NS 500 ML IV ONE (13:02)
[2016-11-27] MEDS ORDERED: PROPOFOL 200 MG/20 ML VIAL IVP ONE (13:02)
[2016-11-27] MEDS ORDERED: MIDAZOLAM 2 MG/2 ML VIAL IVP ONE (13:02)
[2016-11-27] MEDS ORDERED: fentaNYL 100 MCG/2 ML INJ IVP ONE (13:02)
[2016-11-27] MEDS ORDERED: ATROPINE SULFATE 1 MG/10 ML SYR ONE (15:45)
[2016-11-27] MEDS ORDERED: PROPOFOL 200 MG/20 ML VIAL ONE (16:08)
--- NOTE | 2016-11-27 16:43 | CPEKG ---
Heart Rate: 61 RR Interval: 984 P-R Interval: 232 QRSD Interval: 90 QT Interval: 460 QTC Interval: 464 P Shannon: 51 QRS Shannon: -7 T Wave Shannon: 86 EKG Severity - ABNORMAL ECG - EKG Impression: SINUS RHYTHM EKG Impression: FIRST DEGREE AV BLOCK Electronically Signed By: Arvin Marie 28-Nov-2016 07:52:18
[2016-11-27 17:53] VITALS: BP 129/86; PULSE 62; RESP 20; O2SAT 93
--- NOTE | 2016-11-28 02:31 | GDS ---
[f rep st] DISCHARGE SUMMARY DISCHARGE DIAGNOSES: 1. Atrial fibrillation/atrial fibrillation/flutter with rapid ventricular response. 2. Hypertension. 3. Acute mild heart failure, improved. HISTORY: For details, please see the history and physical dated 11/26/2016. In brief, the patient is a 60-year-old female with a history of atrial fibrillation status post ablation in 06/2016 who pr esented to the emergency department with chest pain, shortness of breath, and heart palpitations. S he was found to be in rapid atrial fibrillation and was admitted to the hospital for further managem ent. HOSPITAL COURSE: The patient was admitted to progressive care unit. She was started on long-acting diltiazem and did have better rate control with this. She was continued on Pradaxa for stroke prev ention. However, she has not tolerated her atrial fibrillation/flutter rhythm as she becomes quite symptomatic with any activity. Therefore, Cardiology consult was obtained. She was made n.p.o., an d she underwent DC cardioversion this afternoon with success. She is maintaining sinus rhythm at [facility] time and wishes to go home. I think she is stable for discharge. Will continue her on the long- acting diltiazem and she will need close followup with her rehab rn upon return to [place]. I d iscussed the case with our night warehouse selector, Dr. Daryl Pinto, on admission. He did not feel she w as a good candidate for antiarrhythmic therapy given her lack of ability to follow up as she wishes to return to [facility]. She was given IV Lasix upon arrival and transitioned to oral Lasix the following day. She probably has some acute heart failure related to her rapid ventricular rate. She is currently hemodynamicall y stable without chest pain, shortness of breath, and no hypoxemia. DISPOSITION: Patient is discharged home in stable condition. DISCHARGE MEDICATIONS: Please see [employer] for complete updated outpatient medication list. New me dications on discharge include diltiazem CD 120 mg p.o. daily. She will continue all other medicati ons as prescribed. FOLLOWUP: Patient is instructed to follow up with her rehab rn immediately upon return to [place], [place]. /[id number]/MODL
[2016-11-28] MEDS ORDERED: metFORMIN HCL 500 MG TAB PO SCH (09:00)
--- NOTE | 2016-11-28 16:39 | CPR ---
[f rep st] NONINVASIVE CARDIAC PROCEDURE REPORT PROCEDURE: Cardioversion INDICATION: The patient has a history of atrial fibrillation and atrial flutter. The patient has had 3 ablations for these arrhythmias. She has had at least 4 cardioversions for this arrhythmia. She is symptomatic with arrhythmia. For that reason, it was decided [facility]. She understands the risks and the options, and wants to proceed. She was not going to have a transesophageal echocardiogram. I recommended we do want to look for any clots in the left atrial appendage or problems with the left atrium before we did cardioversion. She, however, has been on Pradaxa for a very long period of time, multiple years and never missed a dose other than years ago, she missed maybe 3 doses. She did not want to do a transesophageal echocardiogram and refused that. Because of her long history of excellent compliance with the medication, I elected to proceed with cardioversion in the absence of the transesophageal echocardiogram, given her preference. DESCRIPTION OF PROCEDURE: She underwent cardioversion with Anesthesia present and was cardioverted with 360 watt seconds from her flutter/fib into normal sinus rhythm. I was with her as she woke up. There were no complications. Anesthesia was also present with her. All her questions were answered. I will follow her as an outpatient as needed. Results reported to the hospitalist. /[id number]/MODL MTDD
--- NOTE | 2016-11-28 17:09 | GCON ---
[f rep st] CONSULTATION CARDIOLOGY CONSULTATION HISTORY OF PRESENT ILLNESS: The patient is here with an arrhythmias. She had a little bit of chest discomfort but not much, mostly she just felt palpitations. They were very uncomfortable. She was here to be at a wedding and she came into the emergency room. She has had multiple other occasions when she has visited [place] because her best friend lives here, where she would end up having atrial fibrillation either here or when she returned home [place]. At this time, she is quite comfortable resting in a hospital bed. She denies significant chest pain . She intermittently will have some palpitations and lightheadedness with the palpitations. She alaniz s not had syncope or near syncope. She takes her diltiazem usually, and she normally does well with that. When she came to [facility] she had some lightheadedness, then the next day she came into the emergency room where she was in atrial fibrillation. She was given diltiazem and converted to sinus rhythm. She was ordered home on p.o. diltiazem. Then she developed a little bit of chest discomf ort but mostly palpitations, dizziness and some shortness of breath. She took her diltiazem, came t o the emergency room. Her heart rate was 160 at least, and she was evaluated and admitted to the [facility]. She has remained in her arrhythmia. She has no chest pain, jaw pain or arm pain. No pleuritic chest pain. No fever, chills or cough. No nausea, vomiting, diarrhea. She is a very active woman. CARDIAC RISK FACTORS: Positive for diabetes mellitus, hyperlipidemia, hypertension, obesity, and fo r hyperuricemia. Cardiac risk factors are negative for family history of premature coronary disease, known coronary a rtery disease. She does not have a smoking history. Her cardiac history includes 2 ablations at the [facility] in [facility] and the n 1 in June at [facility] in [facility]. She intermittently will get fast heartbeats but has not bother her as much until she moved [place] ALLERGIES: None. MEDICATIONS: Listed metformin, simvastatin, nebivolol, furosemide, diltiazem, Pradaxa. SURGICAL HISTORY: 1. She has had multiple radiofrequency ablations for atrial fib and flutter as noted above. 2. She has a history of an oophorectomy. FAMILY HISTORY: She has no family history of premature coronary disease. No history of unexplained sudden at a young age. SOCIAL HISTORY: She was born in [place] in [place]. 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 She lives alone. She has a son who is healthy. She walks on a routine basis. Her best frie nd lives in [place]. She has good friends in [place]. She is spending all her alvarado up in [facility] where she was to be and gets her out of the heat. She is quite active, but she is not walking as much as she wants. She does have significantly bad knee problems. The patient does not drink significant amounts of al cohol. Does not smoke. REVIEW OF SYSTEMS: A 12-point review of systems negative except as noted above. PHYSICAL EXAMINATION: VITAL SIGNS: Her blood pressure is 130/85, respiratory rate is 12. Heart ra te is 110. She is afebrile. Pulse ox is normal. HEENT: Pupils equal, round, and reactive. PULMONARY: Rhonchi. No rales, whee zing or dullness. CARDIOVASCULAR: S1, S2. Irregularly irregular. Soft systolic murmur left hough al border. No diastolic murmur. No S3, S4, or rub. ABDOMEN: Soft, nontender without masses. No organomegaly. EXTREMITIES: No edema, inflammation or ulceration. PSYCH: No obvious anxiety or de pression. SKIN: Age-related changes. NEURO: Cranial nerves 2-12 normal. Motor and sensory total ly intact. LABS AND STUDIES: The patient's studies have shown atrial fibrillation. She had a chest x-ray, which shows consistent with congestive heart failure, fluid overload. She alaniz d a chest CT scan done which showed negative for pulmonary embolic disease, query pulmonary arterial hypertension. Her echocardiographic study showed atrial fibrillation. LV normal in size. Ejectio n fraction 74%. There was a question of an intracavitary gradient that was not clear. There was no rmal wall motion. White count 9.14, hematocrit 43. Sodium 140, potassium 4.4, chloride 103, BUN 13 , creatinine 0.8, glucose was 111. Troponins were negative. Her BNP was 1650. ASSESSMENT: 1. Atrial fibrillation. 2. Acute heart failure. 3. Diabetes. 4. Hypertension. 5. Obesity. 6. Question hyperlipidemia. 7. Arthritis. The patient has been on full anticoagulation for atrial fibrillation, has been a longstanding proble m. She has had 2 ablations in [place] and 1 in [facility]. She is going to report back to her own physician when she gets home. The patient had mild heart failure when she came in with nothing to suggest an acute coronary syndro me and negative EKG for changes. There is nothing to suggest pulmonary embolic disease and that has been ruled out. She does not hav e a pneumonia. There is nothing to suggest disease of the great vessels, the pulses are full and eq ual. She has had intermittent small bouts of chest discomfort that was very minor and was atypical. She has a high CHADS-VASc score. She is staying on her full anticoagulation. I would recommend payam t we do a cardioversion, and I have extensively gone over this with her and what the options are and she is fully aware of these. We also talked about the role of future ablations. She had many questions, and they were answered. I have talked to her about these things quite carefully. She has had intermittent hypertension and we want her blood pressure to be below 130/80. She and I have also reviewed prevention, and I think is very important for her to keep working on lo sing weight and increasing her exercise. I do understand she has limitations to the degree she can walk and there are ways to work around that and she is going to give that a try. I have discussed her case with the hospitalist and with the nursing staff. /[id number]/MODL
== END 2016-11-27 18:37 | disposition home or self-care (01) ==
LOC: F2W 10:47
PROVIDERS: ADMIT Hospitalist; ATTEND Hospitalist
PROC: 5A2204Z Restoration of Cardiac Rhythm, Single (ICD-10-PCS; principal; 2016-11-26)
DX: I48.91 Unspecified atrial fibrillation (principal); I50.9 Heart failure, unspecified; I10 Essential (primary) hypertension; E11.9 Type 2 diabetes mellitus without complications; E78.5 Hyperlipidemia, unspecified; E66.9 Obesity, unspecified
CPT/HCPCS: 71010; 71275; 92960; 93005; 93306; G0378; J0461; J2704; Q9967